=== PATIENT | female | born 1985 | race Hispanic/Latino ===

== ENCOUNTER 2017-03-16 08:54 | Emergency (ER) | payer BC ==
[2017-03-16 09:14] VITALS: BP 118/82; PULSE 71; RESP 18; TEMP 98.6; O2SAT 100
--- NOTE | 2017-03-16 09:36 | C.PDOC ---
History Of Present Illness Pt c/o a lesion on her right foot and another on her right lateral chest wall. Time Seen by Provider: 03/16/17 09:14 Chief Complaint (Nursing): Abnormal Skin Integrity History Per: Patient Onset/Duration Of Symptoms: Days ("a couple of days") Current Symptoms Are (Timing): Still Present Location Of Injury: Right: Chest, Foot Quality Of Symptoms: Itching Severity: Mild Additional History Per: Prior Records Past Medical History Reviewed: Historical Data, Nursing Documentation, Vital Signs Vital Signs: Last Vital Signs Temp 98.6 F 03/16/17 09:06 Pulse 71 03/16/17 09:06 Resp 18 03/16/17 09:06 BP 118/82 03/16/17 09:06 Pulse Ox 100 03/16/17 09:06 - Medical History PMH: Hypothyroidism Family History: States: Unknown Family Hx - Social History Hx Tobacco Use: Yes Hx Alcohol Use: Yes Hx Substance Use: No - Immunization History Hx Tetanus Toxoid Vaccination: Yes Hx Influenza Vaccination: No Hx Pneumococcal Vaccination: No Review Of Systems Except As Marked, All Systems Reviewed And Found Negative. Constitutional: Negative for: Weakness ENT: Positive for: Nose Congestion. Negative for: Mouth Pain, Mouth Swelling Cardiovascular: Negative for: Chest Pain Respiratory: Positive for: Cough. Negative for: Shortness of Breath, Hemoptysis Gastrointestinal: Negative for: Vomiting, Abdominal Pain Musculoskeletal: Negative for: Neck Pain Skin: Positive for: Lesions Neurological: Negative for: Weakness, Numbness, Seizures, Altered Mental Status Physical Exam - Physical Exam Appears: Non-toxic, No Acute Distress Skin: Normal Color, Warm, Dry, Rash (two papules or perhaps broken vesicles on dorsum of right foot and right lateral chest wall) Head: Atraumatic, Normacephalic Eye(s): bilateral: Normal Inspection, PERRL, EOMI Oral Mucosa: Moist, No Drooling, No Trismus Tongue: Normal Appearing Lips: Normal Appearing Throat: Normal Neck: Normal ROM, Supple Lymphatic: No Adenopathy Cardiovascular: Rhythm Regular Respiratory: Normal Breath Sounds, No Accessory Muscle Use Gastrointestinal/Abdominal: Soft, No Tenderness Extremity: Normal ROM, No Pedal Edema, No Calf Tenderness Neurological/Psych: Oriented x3, Normal Speech, Normal Cognition, Normal Motor, Normal Sensation ED Course And Treatment O2 Sat by Pulse Oximetry: 100 Pulse Ox Interpretation: Normal Disposition Counseled Patient/Family Regarding: Diagnosis, Need For Followup, Rx Given - Disposition Disposition: HOME/ ROUTINE Disposition Time: 09:37 Condition: STABLE Additional Instructions: Follow up with Employee [facility] and your primary doctor. Return to the ER if you develop fever, shortness of breath, worsening of symptoms or if you have any other concerns. Prescriptions: DiphenhydrAMINE [Benadryl] 25 mg PO Q4 PRN #30 cap PRN Reason: Allergy Symptoms Instructions: Acute Rash (ED) Forms: [employer] (Slovak) - Clinical Impression Clinical Impression: Skin lesions
== END 2017-03-16 09:46 | disposition home or self-care (01) ==
LOC: C.ER 08:54
DX: L98.8 Other specified disorders of the skin and subcutaneous tissue (principal)

== ENCOUNTER 2017-08-03 07:16 | Emergency (ER) | payer BC ==
[2017-08-03 07:25] VITALS: BMI 33.9
--- NOTE | 2017-08-03 08:07 | C.PDOC ---
History Of Present Illness 31 year old female, [employer] employee, presents to ED for medical clearance to return to work. Pt states she was diagnosed with influenza 1 week ago, and has completed her Tamiflu. Pt states she has been feeling well for the past 2 days, denies any associated symptoms at this time. Patient denies fever, chills, body aches, headache, dizziness, cough, congestion, sore throat, abdominal n/v/d, or UTI symptoms. Time Seen by Provider: 08/03/17 07:31 Chief Complaint (Nursing): Medical Clearance History Per: Patient History/Exam Limitations: no limitations Onset/Duration Of Symptoms: Days Current Symptoms Are (Timing): Gone Severity: None Pain Scale Rating Of: 0 Recent travel outside of the [place]: No Additional History Per: Patient Past Medical History Reviewed: Historical Data, Nursing Documentation, Vital Signs Vital Signs: Last Vital Signs Temp 98.3 F 08/03/17 07:26 Pulse 80 08/03/17 07:26 Resp 17 08/03/17 07:26 BP 118/82 08/03/17 07:26 Pulse Ox 99 08/03/17 08:24 - Medical History PMH: Asthma, Hypothyroidism Surgical History: Tonsillectomy (1991) Family History: States: Unknown Family Hx - Social History Hx Tobacco Use: Yes Hx Alcohol Use: No Hx Substance Use: No - Immunization History Hx Tetanus Toxoid Vaccination: Yes Hx Influenza Vaccination: No (ALLERGY) Hx Pneumococcal Vaccination: No Review Of Systems Except As Marked, All Systems Reviewed And Found Negative. Constitutional: Negative for: Fever, Chills ENT: Negative for: Ear Pain, Nose Discharge, Nose Congestion, Throat Pain Cardiovascular: Negative for: Chest Pain, Palpitations Respiratory: Negative for: Cough, Shortness of Breath, Sputum Gastrointestinal: Negative for: Nausea, Vomiting, Abdominal Pain, Diarrhea Genitourinary: Negative for: Dysuria, Frequency, Hematuria Musculoskeletal: Negative for: Neck Pain, Back Pain Skin: Negative for: Rash, Bruising Neurological: Negative for: Headache, Dizziness Physical Exam - Physical Exam Appears: Well, No Acute Distress Skin: Normal Color, Warm, Dry, No Rash Head: Normacephalic Eye(s): bilateral: PERRL Ear(s): Bilateral: Normal Nose: No Flaring, No Discharge Oral Mucosa: Moist, No Drooling Tongue: Normal Appearing Lips: Normal Appearing Throat: No Drooling Neck: Trachea Midline, Supple Cardiovascular: Rhythm Regular, No Murmur, No JVD Respiratory: No Decreased Breath Sounds, No Accessory Muscle Use, No Stridor, No Wheezing Gastrointestinal/Abdominal: Soft, No Tenderness, No Distention, No Guarding Back: No CVA Tenderness Extremity: Normal ROM, No Pedal Edema, No Deformity Neurological/Psych: Oriented x3, Normal Speech ED Course And Treatment O2 Sat by Pulse Oximetry: 99 (RA) Pulse Ox Interpretation: Normal Progress Note: Influenza AB ordered and reviewed. On re-eval, pt is afebrile, hemodynamicaly stable. Asymptomatic. PulsOx 99% RA. ENT: No acute findings. neck: Supple, (-) meningeal sign. Lungs: CTA B/L, BS equal B/L. Abd: benign. neuorlogicaly intact. Influenza (-). Pt is medically cleared return to work today. Advised to F/u with PMD in 2-3 days for re-eval. Disposition Counseled Patient/Family Regarding: Studies Performed, Diagnosis, Need For Followup - Disposition Referrals: [facility] [Outside] Disposition: HOME/ ROUTINE Disposition Time: 08:06 Condition: STABLE Additional Instructions: PATIENT IS MEDICALLY CLEARED RETURN TO WORK TODAY FOLLOW UP WITH PMD NEED FOR FURTHER EVALUATION AND TREATMENT. Instructions: Normal Exam (ED) Forms: [employer] (Tuvaluan), Work Excuse - Clinical Impression Clinical Impression: Normal exam - PA / DEVELOPMENT REPRESENTATIVE / Resident Statement MD/DO has reviewed & agrees with the documentation as recorded. - Scribe Statement The provider has reviewed the documentation as recorded by the Timibverenice Watt All medical record entries made by the Timibverenice were at my direction and personally dictated by me. I have reviewed the chart and agree that the record accurately reflects my personal performance of the history, physical exam, medical decision making, and the department course for this patient. I have also personally directed, reviewed, and agree with the discharge instructions and disposition.
[2017-08-03 08:59] VITALS: BP 118/78; PULSE 82; RESP 20; TEMP 98; O2SAT 98
== END 2017-08-03 08:50 | disposition home or self-care (01) ==
LOC: C.ER 07:16
DX: Z00.00 Encounter for general adult medical examination without abnormal findings (principal)